=== PATIENT | male | born 1995 | race Caucasian/White ===

== ENCOUNTER 2019-01-18 08:11 | Emergency (ER) | payer OTHER, SELFPAY ==
[2019-01-18 08:19] VITALS: BP 147/90; PULSE 75; RESP 12; TEMP 36.6; O2SAT 98
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
--- NOTE | 2019-01-18 09:26 | PC.NURSE ---
c collar removed by md after ct results
[2019-01-18 09:27] VITALS: BP 144/87; PULSE 75; RESP 14; O2SAT 100
== END 2019-01-18 09:28 | disposition home or self-care (01) ==
PROVIDERS: Emergency Provider Emergency Medicine
DX: S16.1XXA Strain of muscle, fascia and tendon at neck level, initial encounter (principal); V49.40XA Driver injured in collision with unspecified motor vehicles in traffic accident, initial encounter; Y99.0 Civilian activity done for income or pay
CPT/HCPCS: 72125; 99283; 99284